=== PATIENT | female | born 1995 | race Caucasian/White ===

== ENCOUNTER → 2019-05-30 | Outpatient (CLI) | payer OTHER ==
[2019-05-30 15:35] LABS: Basophils % (A) 1 %; Eosinophils # (A) 0.3 k/uL (0-0.7); Eosinophils % (A) 5 %; HCT 43.9 % (34.0-46.0); HGB 14.2 gm/dL (11.4-16.0); Lymphocytes % (A) 31 %; MCH 29.8 pg (25.0-35.0); MCHC 32.4 g/dL (31.0-37.0); Mean Platelet Volume 8.2; Monocytes # (A) 0.3 k/uL (0-1.0); Monocytes % (A) 5 %; Neutrophils # (A) 3.6 k/uL (1.3-7.7); Neutrophils % (A) 56 %; Platelet Count 225 k/uL (150-450); RBC 4.77 m/uL (3.80-5.40); RDW 12.2 % (11.5-15.5); WBC 6.3 k/uL (3.8-10.6)
[2019-05-30 19:00] LABS: African American GFR (CKD) 140.6 (60.0-200.0); Albumin 4.6 g/dL (3.80-4.90); Albumin/Globulin Ratio 2.3 (1.60-3.17); Anion Gap 9.4 mmol/L (4.00-12.00); BUN/Creat Ratio 18.57 Ratio (12.00-20.00); Calcium 9.2 mg/dL (8.7-10.3); Carbon Dioxide 24.6 mmol/L (21.6-31.8); Potassium 4.2 mmol/L (3.5-5.5); Total Bilirubin 0.8 mg/dL (0.3-1.2); Total Protein 6.6 g/dL (6.2-8.2)
== END | disposition home or self-care (01) ==
LOC: LABWHC1 14:42
PROVIDERS: ATTEND Internal Medicine
DX: R55 Syncope and collapse (principal)
CPT/HCPCS: 36415; 80053; 83036; 85025

== ENCOUNTER → 2019-06-30 | Outpatient (CLI) | payer OTHER ==
--- NOTE | 2019-07-01 12:56 | ECHOF ---
Referral Reason:R55 Syncope MEASUREMENTS -------- HEIGHT: 154.9 cm WEIGHT: 60.8 kg BP: 128/72 RVIDd: 2.4 cm (< 3.3) IVSd: 0.8 cm (0.6 - 1.1) LVIDd: 4.4 cm (3.9 - 5.3) LVPWd: 0.7 cm (0.6 - 1.1) IVSs: 1.3 cm LVIDs: 2.6 cm LVPWs: 1.3 cm LA Diam: 2.7 cm (2.7 - 3.8) LAESV Index (A-L): 19.03 ml/m Ao Diam: 2.5 cm (2.0 - 3.7) AV Cusp: 2.0 cm (1.5 - 2.6) MV EXCURSION: 14.078 mm (> 18.000) MV EF SLOPE: 146 mm/s (70 - 150) EPSS: 0.4 cm MV E Brijesh: 0.96 m/s MV DecT: 371 ms MV A Brijesh: 0.49 m/s MV E/A Ratio: 1.96 RAP: 5.00 mmHg RVSP: 20.45 mmHg FINDINGS -------- Sinus rhythm. This was a technically good study. The left ventricular size is normal. Left ventricular wall thickness is normal. Overall left vent ricular systolic function is normal with, an EF between 55 - 60 %. The right ventricle is normal in size. Normal LA size by volume 22+/-6 ml/m2. The right atrial size is normal. Interatrial and interventricular septum intact. The aortic valve is trileaflet, and appears structurally normal. No aortic stenosis or regurgitation. The mitral valve is normal. Mild tricuspid regurgitation present. Right ventricular systolic pressure is normal at < 35 mmHg. Trace/mild (physiologic) pulmonic regurgitation. The aortic root size is normal. Normal inferior vena cava with normal inspiratory collapse consistent with estimated right atrial pre ssure of 5 mmHg. There is no pericardial effusion. CONCLUSIONS -------- 1. Sinus rhythm. 2. This was a technically good study. 3. The left ventricular size is normal. 4. Left ventricular wall thickness is normal. 5. Overall left ventricular systolic function is normal with, an EF between 55 - 60 %. 6. Normal LA size by volume 22+/-6 ml/m2. 7. The aortic valve is trileaflet, and appears structurally normal. No aortic stenosis or regurgitati on. 8. The mitral valve is normal. 9. Mild tricuspid regurgitation present. 10. Right ventricular systolic pressure is normal at < 35 mmHg. 11. Trace/mild (physiologic) pulmonic regurgitation. 12. The aortic root size is normal. 13. Normal inferior vena cava with normal inspiratory collapse consistent with estimated right atrial pressure of 5 mmHg. 14. There is no pericardial effusion. ANALYSIS LEAD: Pilar Herrera RDCS
== END | disposition home or self-care (01) ==
LOC: RADECHMAIN 15:03
PROVIDERS: ATTEND Internal Medicine
DX: I07.1 Rheumatic tricuspid insufficiency (principal); R55 Syncope and collapse
CPT/HCPCS: 93306

== ENCOUNTER → 2020-11-15 | Outpatient (CLI) | payer OTHER ==
--- NOTE | 2020-11-18 07:53 | MR ---
EXAMINATION TYPE: MR brain wo/w con DATE OF EXAM: 11/15/2020 COMPARISON: NONE HISTORY: Headaches, syncope, and head injury 5 years ago. TECHNIQUE: Multiplanar, multisequence images of the brain and brainstem is performed without and with IV contras t, utilizing 7 mL intravenous Gadavist . FINDINGS: Diffusion weighted images demonstrate no evidence of a recent infarct or other diffusion ab normality. There is no worrisome extra-axial fluid collection. The ventricular system and cisternal spaces are normal in size and appearance. The brain volume is age appropriate. T2 Star weighted agustin ges show no suspicious and parenchymal blood product. There is linear area of T2 hyperintensity poste rior right frontal region just above lateral ventricles axial images 21 through 23 Midline structures demonstrate normal morphology. The craniocervical junction appears within normal limits. Post contrast images demonstrate no abnormal enhancement. The dural venous sinuses appear pa tent. The visualized sinuses are clear and the globes are intact. IMPRESSION: Single nonspecific elongated white matter lesion otherwise unremarkable study.
== END | disposition home or self-care (01) ==
LOC: RADMRIMAIN 15:31
PROVIDERS: ATTEND Psychiatry & Neurology Neurology
DX: R90.82 White matter disease, unspecified (principal); R55 Syncope and collapse
CPT/HCPCS: 70553; A9585